=== PATIENT | male | born 1965 | race Caucasian/White ===

== ENCOUNTER → 2023-06-30 | Outpatient (CLI) | payer OTHER, SELFPAY ==
--- NOTE | 2023-06-30 15:50 | RAD_ITS ---
INDICATION: ARTHRITIS EXAMINATION/TECHNIQUE: X-RAY - RIGHT XR Shoulder Min 2 Views 4 VIEWS COMPARISON: FINDINGS: No acute fracture or dislocation. No destructive bone changes. Joint spaces are well-maintained. Normal alignment. Soft tissues are unremarkable. No radiopaque foreign body or soft tissue gas. RAD/Shoulder min 2 Views IMPRESSION: Negative. Electronically Signed: Mikayla Quezada MD at 23:23 EST Reading Location ID and State: [id number] / Tel , Service support ,
--- NOTE | 2023-06-30 15:50 | RAD_ITS ---
STUDY: X-RAY - RIGHT CLAVICLE REASON FOR EXAM: Male, 58 years old. ARTHRITIS TECHNIQUE: 2 view(s) of the clavicle. COMPARISON: FINDINGS: Normal clavicle. Normal acromioclavicular articulation. Normal visualized sternoclavicular articulation. Normal visualized pulmonary apex. RAD/Clavicle IMPRESSION: Normal x-ray examination of the clavicle. Electronically Signed: Mikayla Quezada MD at 23:00 EST Reading Location ID and State: [id number] / Tel , Service support ,
--- NOTE | 2023-06-30 15:50 | RAD_ITS ---
STUDY: X-RAY - LEFT CLAVICLE REASON FOR EXAM: Male, 58 years old. ARTHRITIS TECHNIQUE: 2 view(s) of the clavicle. COMPARISON: FINDINGS: No acute fracture or dislocation. Old healed fracture deformity of the left clavicle. No destructive bone changes. Joint spaces are well-maintained. Normal alignment. Soft tissues are unremarkable. No radiopaque foreign body or soft tissue gas. RAD/Clavicle IMPRESSION: No acute findings. Electronically Signed: Mikayla Quezada MD at 23:04 EST Reading Location ID and State: [id number] / Tel , Service support ,
--- NOTE | 2023-06-30 15:50 | RAD_ITS ---
INDICATION: ARTHRITIS EXAMINATION/TECHNIQUE: X-RAY - LEFT XR Shoulder Min 2 Views 4 VIEWS COMPARISON: FINDINGS: No acute fracture or dislocation. Remote healed left clavicle fracture. No destructive bone changes. Joint spaces are well-maintained. Normal alignment. Soft tissues are unremarkable. No radiopaque foreign body or soft tissue gas. RAD/Shoulder min 2 Views IMPRESSION: No acute findings. Electronically Signed: Mikayla Quezada MD at 23:17 EST Reading Location ID and State: [id number] / Tel , Service support ,
== END | disposition home or self-care (01) ==
LOC: RAD.FUTURE 15:40 → RAD 15:46
PROVIDERS: Referring Provider Chiropractor; Visit Provider Chiropractor
DX: M13.80 Other specified arthritis, unspecified site (principal)
CPT/HCPCS: 73000; 73030